=== PATIENT | male | born 1980 | race Caucasian/White ===

== ENCOUNTER 2024-08-11 20:34 | Emergency (ER) | payer OTHER ==
[~2024-08-11] VITALS: Ht 172.7 cm; Wt 79.0 kg
[2024-08-11 20:47] VITALS: O2SAT 100
[2024-08-11 21:21] VITALS: BP 135/93; PULSE 60; RESP 19; TEMP 37; O2SAT 100
== END 2024-08-11 21:22 | disposition home or self-care (01) ==
LOC: ER 20:34
DX: S90.31XA Contusion of right foot, initial encounter (principal); X58.XXXA Exposure to other specified factors, initial encounter; Y93.89 Activity, other specified; Y92.89 Other specified places as the place of occurrence of the external cause; Y99.8 Other external cause status
CPT/HCPCS: 73630; 99283